=== PATIENT | female | born 1945 | race Caucasian/White ===

== ENCOUNTER 2016-07-06 07:21 | Day surgery (SDC) | payer OTHER, MEDICARE ==
[2016-07-06] MEDS ORDERED: ceFAZolin 2 GM/DEXTROSE 100 ML IV ONE (08:00)
[2016-07-06] MEDS ORDERED: LIDOCAINE 1% 5 ML SDV ID PRN (08:04)
[2016-07-06] MEDS ORDERED: BUPIVACAINE 0.5% 30 ML SDV ONE (09:21)
[2016-07-06] MEDS ORDERED: fentaNYL 250 MCG/5 ML INJ ONE (09:30)
[2016-07-06] MEDS ORDERED: PROPOFOL/EMULSION 500 MG/50 ML BOTTLE IV ONE (09:31)
[2016-07-06] MEDS ORDERED: MIDAZOLAM 2 MG/2 ML VIAL ONE (09:33)
[2016-07-06] MEDS ORDERED: LIDO/EPI 1% **Not for Epidural 20 ML MDV ONE (09:47)
[2016-07-06] MEDS ORDERED: KETOROLAC 30 MG/1 ML SDV ONE (11:19)
--- NOTE | 2016-07-06 11:30 | GOP ---
[f rep st] OPERATIVE REPORT DATE OF OPERATION: 07/06/2016 SURGEON: Venice Kaiser MD PRIVATE TUTOR: Paula Carias PA-C ANESTHESIA: Monitored anesthesia care with IV sedation. ANESTHESIOLOGIST: Satish Garcia MD PREOPERATIVE DIAGNOSIS: Right breast mass. POSTOPERATIVE DIAGNOSIS: Right breast mass. PROCEDURE PERFORMED: Excisional biopsy right breast mass. FINDINGS: SPECIMENS: Right breast tissue. ESTIMATED BLOOD LOSS: 5 cc. INDICATIONS: The patient is a 71-year-old woman who has a history of right breast cancer. She is st atus post lumpectomy and radiation. She had a biopsy last year and then developed a nodule that did not resolve. She presents for excision. DESCRIPTION OF PROCEDURE: The patient was brought into the operating room, placed supine on the tabl e, and monitored anesthesia care with IV sedation was administered. Her right breast was prepped and draped in the usual sterile fashion. I infiltrated all sites with 0.5% Marcaine mixed with 1% lidoc carrie prior to making incisions. I used a total of 24 cc. I dissected down to the level of the mass. I created superior and inferior skin flaps. The mass measured approximately 1.5 cm. It was very f irm and hard. I dissected down to where there was soft breast tissue in all directions. The specime ns sent to Pathology. The cavity was inspected for hemostasis which was achieved. The wound was janessa sed with 3-0 Vicryl, followed by 4-0 Monocryl. Mastisol, Steri-Strips, and a sterile dressing were a pplied. She was awakened in the operating room, transferred to PACU in stable condition. COMPLICATIONS: None. /[id number]/MODL
[2016-07-06] MEDS ORDERED: KETOROLAC 30 MG/1 ML SDV IVP ONE (12:00)
== END 2016-07-06 11:40 | disposition home or self-care (01) ==
LOC: FSGY 07:21
PROVIDERS: ATTEND Surgery
PROC: 0HBT0ZX Excision of Right Breast, Open Approach, Diagnostic (ICD-10-PCS; principal; 2016-07-06 08:45)
DX: N63 Unspecified lump in breast (principal); Z85.3 Personal history of malignant neoplasm of breast
CPT/HCPCS: J0690; J1885; J2250; J2704; J3010

== ENCOUNTER → 2017-07-23 | Outpatient (CLI) | payer OTHER, MEDICARE | LOC: FIMAGING 13:54 | PROVIDERS: ATTEND Family Medicine | DX: Z12.31 Encounter for screening mammogram for malignant neoplasm of breast (principal); Z85.3 Personal history of malignant neoplasm of breast; Z13.820 Encounter for screening for osteoporosis; M85.832 Other specified disorders of bone density and structure, left forearm ==

== ENCOUNTER → 2018-09-03 | Outpatient (CLI) | payer OTHER, MEDICARE | LOC: FIMAGING 12:02 | PROVIDERS: ATTEND Family Medicine | DX: Z12.31 Encounter for screening mammogram for malignant neoplasm of breast (principal); Z85.3 Personal history of malignant neoplasm of breast ==